=== PATIENT | female | born 1960 | race Caucasian/White ===

== ENCOUNTER → 2021-12-03 07:43 | Outpatient (CLI) | payer OTHER, SELFPAY ==
--- NOTE | ~2021-12-03 | MR_ITS ---
EXAMINATION: MR shoulder RT wo con DATE: 12/03/2021 08:38 INDICATION: Right shoulder pain TECHNIQUE: Magnetic resonance imaging (MRI) of the right shoulder was performed without intravenous c ontrast. Sequences included axial PD-weighted FS FSE, coronal oblique PD-weighted FS FSE, coronal obl ique T2-weighted FS FSE, sagittal PD-weighted FS FSE, and sagittal T1-weighted SE. COMPARISON: None. FINDINGS: Coracoacromial arch: The acromion undersurface is curved in morphology (type II). The coracoacromial ligament is normal. D istal right clavicle resection. Rotator cuff: Multiple foci of susceptibility artifact along the distal supraspinatus and infraspinatus tendons and suture anchor tracks along the greater tuberosity consistent with prior rotator cuff repair. Moderat e supraspinatus and mild infraspinatus tendinopathy. Mild attenuation of a minimal amount of the conj oined portion of the supraspinatus and infraspinatus tendons which measures approximately 3 mm AP. Th is consistent with a small partial thickness articular sided tear of the posterior supraspinatus tend on. The tear margin is retracted approximately 2.5 cm to the level of the apex of the humeral head al daniel the thickened rotator cable. It is unclear whether this represents residual tear post repair with recurrent tear. The teres minor tendon is normal. Mild subscapularis tendinopathy without discrete t ear. Minimal subscapularis tendinopathy without discrete tear. Minimal fatty atrophy of the supraspin atus and infraspinatus tendons. Biceps tendon, glenoid labrum and glenohumeral cartilage: Long head of the biceps tendon is normal. Tear at the 12:00-10:30 position of the posterior superior glenoid labrum. Small marginal osteophytes replacing portions of the inferior and anteroinferior labr um. Mild partial-thickness cartilage loss with smooth chondral surface at the inferomedial aspect of the humeral head and cephalad aspect of the glenoid. Fluid: Physiologic amount of fluid in the glenohumeral joint and biceps tendon sheath. No loose osteochondr al bodies. Small amount of fluid in the subacromial/subdeltoid bursa consistent with mild bursitis. Bones: Normal bone marrow signal with no fracture or pathologic marrow replacing process. IMPRESSION: 1. Moderate supraspinatus and infraspinatus tendinopathy with change of prior rotator cuff repair. Ve ry small mild residual versus recurrent articular sided tear involving the supraspinatus component of the conjoined portion of the tendon. 2. Mild right glenohumeral osteoarthritis with tear of the superior to posterior superior glenoid lab rum. 3. Mild subacromial/subdeltoid bursitis. 4. Distal right clavicle resection. Reviewed, dictated and finalized at location B. IMPRESSION: 1. Moderate supraspinatus and infraspinatus tendinopathy with change of prior r otator cuff repair. Very small mild residual versus recurrent articular sided t ear involving the supraspinatus component of the conjoined portion of the tendo n. 2. Mild right glenohumeral osteoarthritis with tear of the superior to posterio r superior glenoid labrum. 3. Mild subacromial/subdeltoid bursitis. 4. Distal right clavicle resection.
--- NOTE | ~2021-12-03 | MR_ITS ---
EXAMINATION: MR cervical spine wo con DATE: 12/03/2021 08:47 INDICATION: Right-sided neck pain. TECHNIQUE: Magnetic resonance imaging (MRI) of the cervical spine was performed without intravenous c ontrast. Sequences included sagittal T2-weighted FSE, sagittal T2-weighted FS FSE, sagittal T1-weight ed FSE, axial MERGE, and axial T2-weighted FSE. COMPARISON: None FINDINGS: There is dextroscoliosis of thoracic spine. Vertebral body heights are normal. There is mil dly decreased disc height at C3-C4 and moderately decreased disc height from C4-C5 through C7-T1 with endplate remodeling. The spinal cord signal intensity is normal. The following disc levels are speci fically discussed: C2-C3: The disc does not extend beyond the endplate margin. There is no uncovertebral joint osteoarth ritis. There is mild bilateral facet joint osteoarthritis. There is no neural foraminal stenosis. The re is no central canal stenosis. C3-C4: The disc is bulging. There is mild bilateral uncovertebral joint osteoarthritis. There is mode rate right and severe left facet joint osteoarthritis. There is mild bilateral neural foraminal steno sis. There is no central canal stenosis. C4-C5: The disc is bulging. There is severe bilateral uncovertebral joint osteoarthritis. There is se edith bilateral facet joint osteoarthritis. There is mild right and moderate left neural foraminal fidelia nosis. There is mild central canal stenosis. C5-C6: The disc is bulging. There is severe bilateral uncovertebral joint osteoarthritis. There is mi ld bilateral facet joint osteoarthritis. There is moderate bilateral neural foraminal stenosis. There is mild central canal stenosis. C6-C7: The disc is bulging. There is moderate right and severe left uncovertebral joint osteoarthriti s. There is mild right and moderate left facet joint osteoarthritis. There is mild bilateral neural f oraminal stenosis. There is mild central canal stenosis. C7-T1: The disc is bulging. There is mild right and severe left uncovertebral joint osteoarthritis. T here is severe bilateral facet joint osteoarthritis. There is mild bilateral neural foraminal stenosi s. There is mild central canal stenosis. IMPRESSION: 1. Moderate cervical spondylosis. Reviewed, dictated and finalized at location A.
== END ==
PROVIDERS: PCP Internal Medicine; Visit Provider Orthopaedic Surgery
DX: M19.011 Primary osteoarthritis, right shoulder (principal); M75.51 Bursitis of right shoulder; M47.892 Other spondylosis, cervical region
CPT/HCPCS: 72141; 73221

== ENCOUNTER 2022-02-05 14:33 | Outpatient (CLI) | payer OTHER, SELFPAY ==
--- NOTE | 2022-02-05 | ECG_ITS ---
Measurements Intervals [place] Rate: 72 P: 47 [place]: 172 QRS: -39 QRSD: 101 T: -6 QT: 390 QTc: 428 Interpretive Statements SINUS RHYTHM LEFT AXIS DEVIATION VOLTAGE CRITERIA FOR LVH BORDERLINE ECG NO PREVIOUS ECG AVAILABLE FOR COMPARISON Electronically Signed On 02-05-2022 15:32:59 CDT by Jerod Larsen M.D.
--- NOTE | ~2022-02-05 | XR_ITS ---
EXAMINATION: XR chest 2V 02/05/2022 15:25 INDICATION: Preoperative cervical spine surgery PROCEDURE: 2 view chest COMPARISON: No prior studies for comparison. FINDINGS: The lungs are clear. The cardiomediastinal silhouette is within normal limits. There are no pleural effusions. There is no pneumothorax suspected. There is dextroscoliosis of the thoracic spine. IMPRESSION: 1: NO ACUTE CARDIOPULMONARY DISEASE. Reviewed, dictated and finalized at location A.
[2022-02-05 15:21] LABS: Basophils Percent Auto 0.6 % (0.2-1.2); Eosinophils Absolute Auto 0.1 K/mm3 (0-0.3); Hematocrit 41.4 % (37.0-47.0); Hemoglobin 13.1 g/dL (12.0-15.0); Immature Granulocyte Absolute 0.02 K/mm3 (0.00-0.031); Immature Granulocyte Percent A 0.3 % (0-0.5); Lymphocytes Absolute Auto 2.08 K/mm3 (0.9-3.2); Lymphocytes Percent Auto 28.7 % (18.3-44.2); Mean Corpuscular HGB Conc 31.6 g/dl (32-36); Mean Corpuscular Hemoglobin 29.6 pg (26-34); Mean Corpuscular Volume 93.5 fl (80-100); Mean Platelet Volume 9.8 fl (7.4-10.4); Monocytes Absolute Auto 0.5 K/mm3 (0.1-0.6); Monocytes Percent Auto 7.2 % (2.6-8.5); Neutrophils Absolute Auto 4.5 K/mm3 (1.3-6.7); Neutrophils Percent Auto 62.2 % (45.5-73.1); Platelet Count Result 333 k/mm3 (150-375); Red Blood Count 4.43 M/mm3 (4.2-5.4); Red Cell Distribution Width 12.9 % (11.5-14.5); White Blood Count 7.2 K/mm3 (4.5-10.0)
[2022-02-05 15:32] LABS: Partial Thromboplastin Time 26.1 SECONDS (22.3-36.8); Prothrombin Time 12.6 Seconds (11.1-14.7)
[2022-02-05 15:33] LABS: Alanine Aminotransferase 26 U/L (6-35); Albumin Level 4.4 g/dL (3.5-5.1); Alkaline Phosphatase 72 U/L (38-126); Anion Gap 7 mmol/L (8-16); Aspartate Amino Transferase 25 U/L (14-36); Blood Urea Nitrogen 16 mg/dL (7-17); Calcium 9.8 mg/dL (8.4-10.2); Carbon Dioxide 28 mmol/L (22-30); Chloride 103 mmol/L (98-107); Estimated Glomerular Filt Rate > 60; Glucose 95 mg/dL (65-110); Potassium 3.7 mmol/L (3.4-5.0); Sodium 138 mmol/L (137-145)
== END 2022-02-05 14:34 | disposition home or self-care (01) ==
PROVIDERS: PCP Internal Medicine
DX: Z01.818 Encounter for other preprocedural examination (principal)
CPT/HCPCS: 36415; 71046; 80053; 85025; 85610; 85730; 93005

== ENCOUNTER → 2022-09-24 16:57 | Outpatient (CLI) | payer OTHER, SELFPAY ==
--- NOTE | ~2022-09-24 | MR_ITS ---
MRI of the right hip Clinical history: Pain Technique: Coronal T1-weighted, T2-weighted, and proton-density fat-sat images, and axial T1-weighted and proton-density fat-sat images were acquired through the pelvis. Coronal T2-weighted images and c oronal, axial, and sagittal proton-density fat-sat images were acquired through the right hip. Findings: There is no fracture, avascular necrosis, or transient osteoporosis of either hip. Bone mar row signals in the proximal femora and visualized pelvic bones are unremarkable. Bilateral hip and SI joints are preserved. No erosive change or joint effusion evident. Probable mild degenerative attenu ation of the right acetabular labrum without definite discrete labral tear. Visualized musculature about the pelvis and right hip is unremarkable. No muscle atrophy or edema see n. Visualized tendons are intact. No soft tissue mass or fluid collection. No evidence for bursitis. IMPRESSION: No significant abnormality seen. Reviewed, dictated and finalized at location .
== END ==
PROVIDERS: PCP Nurse Practitioner; Visit Provider Orthopaedic Surgery
DX: M25.551 Pain in right hip (principal)
CPT/HCPCS: 73721

== ENCOUNTER 2025-01-23 20:45 | Emergency (ER) | payer MEDICARE, SELFPAY ==
--- OUTSIDE RECORDS SUMMARY | 2025-01-23 20:47 | XMS_ITS | Continuity of Care Document ---
Author Organization [facility] Address [address] [place] [address] Phone Care Team Providers Care Set Up Inspector Name Role Phone Yariel Arana MD Unavailable Unavailable Procedures Procedure Date INJ SPINE CERV/THOR W/ IMAGING GUIDANCE SURGICAL TRAY LOW OSMOLAR CONTRAST (300 TO 399 MG IODI NE) Injection, Triamcinolone Acetonide, 10mg Advance Directives Directive Yes / No Effective Date File Name No Information Encounters Encounter Description Practice Location Reason(s) For Visit Diagnoses Date Provider Providers Copied on Encounter [facility], [address], [place], [place], [address], [place] tel:[phone] [facility] No Information Yasmeen Saldivar. [address] , [place], [place], [address], [place]. tel:[phone] Referring Provider: Iglesia Harrington DO, [address], [place], [address]. tel:[phone] Family History Family Member Type Diagnosis Age At Onset No Information Payers Payer name Insurance type Covered democrat ID Authoriza tilorena(s) GARIMA CI [id number] Social History Type Description Quantity Date Captured Comments Sex Female Smoking Status No Information Chief Complaint And Reason For Visit No Information Reason For Referral Reason For Referral No Information History Of Present Illness Encounter Date Complaint History Of Prese nt Illness No Information Functional Status Date Functional Assessmen t No Information Instructions Date Instruction Additional Infor mation No Information Assessments Type Assessment Date No Information Patient Care Teams Name Effective Dates (start - stop) Status Members No Information
--- OUTSIDE RECORDS SUMMARY | 2025-01-23 20:47 | XMS_ITS | Clinical Summary ---
Author Organization [facility] Address [address] [place] [address] Care Team Providers Care Core Stacker Name Role Phone Cristobal Cummings MD Primary Care Provider [phone] Source Comments [facility],non-owned Affiliates and Associated Physician Practices is amultiple site organization consisting of ambulatory clinics and hospital sitesin [place], [place], [place] and [place]. This disclosure is being madepursuant to the Care Everywhere program and may not contain all information available regarding this patient. Last updated 18.[facility] Immunizations Immunization Administration Dates Next Due FLU VACCINE QUAD IIV4 PF ID 03/15/2016 Social History Tobacco Use Types Packs/Day Years Used Date Smoking Tobacco: Never Assessed Comments Unknown Sex and Gender Information Value Date Recorded Sex Assigned at Not on file Legal Sex Female 4:15 PM CDT Gender Identity Not on file Sexual Orientation Not on file Plan of Treatment Health Maintenance Due Date Last Done Comments BONE DENSITY TESTING 1960 COLOGUARD (AGES 45-75) - COL ON CA SCREENING 1958 COLON MONITORING 1958 COLONOSCOPY - COLON CA SCREENING 1958 CT COLONOGRAPHY - COLON CA SCREENING 1958 Colorectal Cancer Screening 1958 FIT - COLON CA SCREENING 1958 FLEX SIG - COLON CA SCREENING 1958 LIPID TESTING 1958 MAMMOGRAM 1958 HEPATITIS C SCREENING 07/11/1976 DTAP/TDAP/TD VACCINES (1 - Tdap) 1977 PNEUMOCOCCAL VACCINE 50+ (1 of 1 - PCV) 2008 ZOSTER VACCINE (1 of 2) 2008 COVID-19 VACCINE (2023-2 5 season) 2024 DEPRESSION SCREENING 06/14/2024 INFLUENZA VACCINE (#1) 2025 03/15/2016 Respiratory Syncytial Virus (RSV) Vaccine Pt: or over 60 yrs (1 - 1-dose 75+ series) 2033 HEPATITIS B VACCINE Aged Out No longe r eligible based on patient's age to complete this topic HIB VACCINE Aged Out No longer eligi ble based on patient's age to complete this topic HPV VACCINE Aged Out No longer eligi ble based on patient's age to complete this topic MENINGOCOCCAL (Group B) VACC INE SHARED DECISION-MAKING Aged Out No longer eligibl e based on patient's age to complete this topic MENINGOCOCCAL GROUPS A/C/Y/W VACCINE Aged Out No longer eligible b ased on patient's age to complete this topic [facility] [place] [id number] [employer] [facility] [place] [id number] [employer] Care Teams Core Stacker Relationship Specialty Start Date End Date Cristobal Cummings MD [address] [place] [id number] PCP - General 09/21/17
--- OUTSIDE RECORDS SUMMARY | 2025-01-23 20:47 | XMS_ITS | Continuity of Care Document ---
Author Organization [facility] Address [address] [place] [address] [address] [place] [address] Phone Care Team Providers Care Crop Grain Or Livestock Farmer Name Role Phone Cesar Funes PT Unavailable Unavailable Procedures Procedure Date Therapeutic Activities Manual Therapy Hot or Cold Pack Therapeutic Activities Neuromuscular Re-Ed Therapeutic Exercise Manual Therapy Hot or Cold Pack Therapeutic Activities Neuromuscular Re-Ed Therapeutic Exercise Manual Therapy Therapeutic Activities Neuromuscular Re-Ed Therapeutic Exercise Hot or Cold Pack Therapeutic Activities Therapeutic Exercise Neuromuscular Re-Ed Hot or Cold Pack Therapeutic Activities Neuromuscular Re-Ed Manual Therapy Hot or Cold Pack Therapeutic Activities Neuromuscular Re-Ed Therapeutic Exercise Manual Therapy Hot or Cold Pack Therapeutic Activities Neuromuscular Re-Ed Manual Therapy Therapeutic Exercise Hot or Cold Pack PT Evaluation Low Complexity Therapeutic Activities Neuromuscular Re-Ed Therapeutic Exercise Manual Therapy Therapeutic Activities Progress Note Hot or Cold Pack Manual Therapy Neuromuscular Re-Ed Therapeutic Activities Manual Therapy Neuromuscular Re-Ed Therapeutic Activities Manual Therapy Neuromuscular Re-Ed Neuromuscular Re-Ed Therapeutic Activities Manual Therapy Neuromuscular Re-Ed Therapeutic Activities Manual Therapy Manual Therapy Neuromuscular Re-Ed Therapeutic Activities PT Evaluation Low Complexity Advance Directives Directive Yes / No Effective Date File Name No Information Encounters Encounter Description Practice Location Reason(s) For Visit Diagnoses Date Provider Providers Copied on Encounter [facility] [address], [place], [place], [id number], tel:[phone] [place] No Information 2 Marin Cesar. . Referring Provider: Mitali Aguilar [address] [address], [place], [address]. tel:[phone] [facility] [address] [facility] [address], [place], [place], [address], tel:[phone] [place] No Information Apr- 2 Marin Cesar. . Referring Provider: Mitali Aguilar [facility] [address], [place], [address]. tel:[phone] [facility] [facility] [address], [place], [place], [address], tel:[phone] [place] No Information Apr- 2 Marin Cesar. . Referring Provider: Mitali Aguilar [facility] [address], [place], [address]. tel:[phone] [facility], [facility] [address], [place], [place], [address], [place] tel:[phone] [place] No Information 2 Marin Cesar. . Referring Provider: Mitali Aguilar [address], [place], [address]. tel:[phone] [facility] [address], [place], [place], [address], [place] tel:[phone] [place] No Information 0-202 2 Marin Cesar. . Referring Provider: Mitali Aguilar [address], [place], [address]. tel:[phone] [facility] [address], [place], [place], [address], [place] tel:[phone] [place] No Information 0 8 2 Marin Cesar. . Referring Provider: Mitali Aguilar [address], [place], [address]. tel:[phone] [facility] [address], [place], [place], [address], [place] tel:[phone] [place] No Information 2 Marin Cesar. . Referring Provider: Mitali Aguilar [address], [place], [address]. tel:[phone] [facility] [address], [place], [place], [address], [place] tel:[phone] [place] No Information 2 Marin Cesar. . Referring Provider: Mitali Aguilar [address], [place], [address]. tel:[phone] [facility] [address], [place], [place], [address], [place] tel:[phone] [place] No Information 0 2 Marin Cesar. . Referring Provider: M[address]i [address], [place], [address]. tel:[phone] [facility] [address] [facility] [address], [place], [place], [address], tel:[phone] [place] No Information 2 Marin Cesar. . Referring Provider: Mitali [address], [place], [address]. tel:[phone] [address], [place], [place], [address], tel:[phone] [place] No Information 2 Marin Cesar. . Referring Provider: Mitali Agu[address] [address], [place], [address]. tel:[phone] [facility] [address] [facility] [address] [facility] [address], [place], [place], [address], [place] tel:[phone] [place] No Information 2 Marin Cesar. . Referring Provider: Mitali Aguilar [facility] [address], [place], [address]. tel:[phone] [facility] [address] [place], [place] [address], [place], [place], [address], [place] tel:[phone] [place] No Information 0 2 Marin Cesar. . Referring Provider: Mitali [address], [place], [address]. tel:[phone] [facility] [address] [facility] [address], [place], [place], [address], tel:[phone] [place] No Information 0 2 Marin Cesar. . Referring Provider: Mitali Aguilar [facility] [address], [place], [address]. tel:[phone] [facility], [address] [facility] [address] [facility] [address], [place], [place], [address], [place] tel:[phone] [facility] No Information 2 Marin Guerrero. . Referring Provider: Iglesia Harrington, [address], [place], [address]. tel:[phone] Family History Family Member Type Diagnosis Age At Onset No Information Payers Payer name Insurance type Covered republican ID Authordarrell sweeney(s) [employer] [id number] Social History Type Description Quantity Date Captured Comments Sex Female Smoking Status No Information Chief Complaint And Reason For Visit No Information Reason For Referral Reason For Referral No Information History Of Present Illness Encounter Date Complaint History Of Prese nt Illness No Information Functional Status Date Functional Assessmen t No Information Instructions Date Instruction Additional Infor mation Giving encouragement to exercise Related to Overweight Giving encouragement to exercise Related to Overweight Giving encouragement to exercise Related to Overweight Giving encouragement to exercise Related to Overweight Giving encouragement to exercise Related to Overweight Giving encouragement to exercise Related to Overweight Assessments Type Assessment Date No Information Patient Care Teams Name Effective Dates (start - stop) Status Members No Information
--- NOTE | 2025-01-23 20:51 | ECG_ITS ---
Test Date: 2025-01-23 20:58:36 Measurements Intervals [place] Rate: 92 P: 30 [place]: 138 QRS: -52 QRSD: 101 T: 11 QT: 346 QTc: 429 Interpretive Statements SINUS RHYTHM POSSIBLE LEFT ATRIAL ENLARGEMENT LEFT ANTERIOR FASCICULAR BLOCK LEFT VENTRICULAR HYPERTROPHY AND ST-T CHANGE CONSIDER HIGH LATERAL INFARCT, AGE INDETERMINATE BASELINE ARTIFACT- I, II, III, AVR, AVL, AVF, V1-V6 ABNORMAL ECG No previous ECG available for comparison Electronically Signed On 01-24-2025 06:14:09 CDT by Mihir Lopes D.O.
[2025-01-23 20:52] VITALS: BP 181/101; PULSE 86; RESP 18; TEMP 36.8; O2SAT 99
[2025-01-23] MEDS: ASPIRIN 81 MG CHEWABLE TABLET 324 MG PO (21:13)
[2025-01-23 21:14] LABS: Hematocrit 40.3 % (37.0-47.0); Hemoglobin 12.9 g/dL (12.0-15.0); Immature Granulocyte Percent A 0.4 % (0-0.5); Lymphocytes Absolute Auto 3.18 K/mm3 (0.9-3.2); Mean Corpuscular HGB Conc 32.0 g/dl (32-36); Mean Corpuscular Hemoglobin 29.3 pg (26-34); Mean Corpuscular Volume 91.6 fl (80-100); Nucleated Red Blood Cells Absolute Auto 0.000 K/mm3 (0.0-0.012); Nucleated Red Blood Cells Perc 0.0 % (0.0-0.2); Platelet Count Result 306 k/mm3 (150-375); Red Blood Count 4.40 M/mm3 (4.2-5.4); White Blood Count 7.5 K/mm3 (4.5-10.0)
[2025-01-23 21:24] LABS: Alanine Aminotransferase 45 U/L (6-35); Albumin Level 4.7 g/dL (3.5-5.1); Alkaline Phosphatase 95 U/L (38-126); Anion Gap 7 mmol/L (4-12); Aspartate Amino Transferase 39 U/L (14-36); Bilirubin,Total 1.1 mg/dL (0.2-1.3); Blood Urea Nitrogen 14 mg/dL (7-17); Calcium 10.5 mg/dL (8.4-10.2); Carbon Dioxide 29 mmol/L (22-30); Chloride 103 mmol/L (98-107); Estimated CRCL calculation 52 ml/min; Estimated Glomerular Filt Rate 52; Glucose 115 mg/dL (65-110); Lipase 83 U/L (23-300); Potassium 4.3 mmol/L (3.4-5.0); Sodium 139 mmol/L (137-145); Total Protein 8.0 g/dL (6.3-8.2)
[2025-01-23 21:26] LABS: INR 0.9; Prothrombin Time 12.7 Seconds (11.1-14.7)
[2025-01-23 21:27] LABS: Partial Thromboplastin Time 27.2 Seconds (22.3-36.8)
[2025-01-23 21:35] LABS: Troponin I < 0.012 ng/mL (0.000-0.034)
[2025-01-23 23:10] VITALS: BP 155/94; PULSE 67; TEMP 36.5; O2SAT 98
--- NOTE | 2025-01-23 23:22 | PC.NURSE ---
Pt ambulatory to intake desk and states she is wanting to leave and is asking for advice whether or not to stay. custom bookbinder states we always recommend pt stay to be seen but we cannot force you to stay. Pt states she wants to leave but wants to know the results of her blood work. RN states we cannot give results out in triage but if anything was ciritical they would have been brought back sooner. Pt states she is wanting to leave. RN gave pt a portal pamphlet and states to come back in if anything worsens. Pt left without being seen at 2312. Pt exite with steady gait.
--- OUTSIDE RECORDS SUMMARY | 2025-01-23 23:47 | XMS_ITS | Continuity of Care Document ---
Author Organization [facility] Address [address] [place] [address] Phone Care Team Providers Care Drivematic Machine Operator Name Role Phone Yariel Arana MD Unavailable Unavailable Procedures Procedure Date INJ SPINE CERV/THOR W/ IMAGING GUIDANCE SURGICAL TRAY LOW OSMOLAR CONTRAST (300 TO 399 MG IODI NE) Injection, Triamcinolone Acetonide, 10mg Advance Directives Directive Yes / No Effective Date File Name No Information Encounters Encounter Description Practice Location Reason(s) For Visit Diagnoses Date Provider Providers Copied on Encounter [facility], [address], [place], [place], [address], [place] tel:[phone] [facility] No Information Yasmeen Saldivar. [address] , [place], [place], [address], [place]. tel:[phone] Referring Provider: Iglesia Harrington DO, [address], [place], [address]. tel:[phone] Family History Family Member Type Diagnosis Age At Onset No Information Payers Payer name Insurance type Covered constitution party ID Authoriza tilorena(s) GARIMA CI [id number] Social History Type Description Quantity Date Captured [...]
--- OUTSIDE RECORDS SUMMARY | 2025-01-23 23:47 | XMS_ITS | Continuity of Care Document ---
Author Organization [facility] Address [address] [place] [address] [address] [place] [address] Phone Care Team Providers Care Csr Technician Name Role Phone Cesar Funes PT Unavailable Unavailable Procedures Procedure Date Therapeutic Activities Manual Therapy Hot or Cold Pack Therapeutic Activities Neuromuscular Re-Ed Therapeutic Exercise Manual Therapy Hot or Cold Pack Therapeutic Activities Neuromuscular Re-Ed Therapeutic Exercise Manual Therapy Therapeutic Activities Neuromuscular Re-Ed Therapeutic Exercise Hot or Cold Pack Therapeutic Activities Neuromuscular Re-Ed Therapeutic Exercise Hot or Cold Pack Therapeutic Activities Neuromuscular Re-Ed Manual Therapy Hot or Cold Pack Therapeutic Activities Neuromuscular Re-Ed Therapeutic Exercise Manual Therapy Hot or Cold Pack Therapeutic Activities Neuromuscular Re-Ed Therapeutic Exercise Manual Therapy Hot or Cold Pack PT Evaluation Low Complexity Therapeutic Activities Neuromuscular Re-Ed Therapeutic Exercise Manual Therapy Progress Note Therapeutic Activities Neuromuscular Re-Ed Manual Therapy Hot or Cold Pack Therapeutic Activities Neuromuscular Re-Ed Manual Therapy Therapeutic Activities Neuromuscular Re-Ed Manual Therapy Therapeutic Activities Neuromuscular Re-Ed Manual Therapy Therapeutic Activities Neuromuscular Re-Ed Manual Therapy PT Evaluation Low Complexity Therapeutic Activities Neuromuscular Re-Ed Manual Therapy Advance Directives Directive Yes / No Effective Date File Name No Information Encounters Encounter Description Practice Location Reason(s) For Visit Diagnoses Date Provider Providers Copied on Encounter [facility] [address], [place], [place], [id number], tel:[phone] Dawson No Information 2 Marin Cesar. . Referring Provider: Mitali Aguilar [address] [address], [place], [address]. tel:[phone] [facility] [address] [facility] [address], [place], [place], [id number], tel:[phone] [place] No Information Apr- 2 Marin Cesar. . Referring Provider: Mitali Aguilar [facility] [address], [place], [address]. tel:[phone] [facility] [facility] [address], [place], [place], [id number], tel:[phone] Dawson No Information Apr- 2 Marin Cesar. . Referring Provider: Mitali Aguilar [facility] [address], [place], [address]. tel:[phone] [facility], [facility] [address], [place], [place], [id number], [place] tel:[phone] [place] No Information 2 Marin Cesar. . Referring Provider: Mitali Aguilar [address], [place], [address]. tel:[phone] [facility] [address], [place], [place], [id number], [place] tel:[phone] [place] No Information 0-202 2 Marin Cesar. . Referring Provider: Mitali Aguilar [address], [place], [address]. tel:[phone] [facility] [address], [place], [place], [id number], [place] tel:[phone] Dawson No Information 0 8 2 Marin Cesar. . Referring Provider: Mitali Aguilar [address], [place], [address]. tel:[phone] [facility] [address], [place], [place], [id number], [place] tel:[phone] [place] No Information 2 Marin Cesar. . Referring Provider: Mitali Aguilar [address], [place], [address]. tel:[phone] [facility] [address], [place], [place], [id number], [place] tel:[phone] [place] No Information 2 Marin Cesar. . Referring Provider: Mitali Aguilar [address], [place], [address]. tel:[phone] [facility] [address], [place], [place], [address], [place] tel:[phone] [place] No Information 0 2 Marin Cesar. . Referring Provider: Mitali Agu[address], [place], [address]. tel:[phone] [facility] [address] [facility] [address], [place], [place], [id number], tel:[phone] [place] No Information 2 Marin Cesar. . Referring Provider: Mitali Agu[address], [place], [address]. tel:[phone] [address], [place], [place], [id number], tel:[phone] [place] No Information 2 Marin Cesar. . Referring Provider: Mitali Aguilar [address] [address], [place], [address]. tel:[phone] [facility] [address] [address], [place], [place], [id number], [place] tel:[phone] [place] No Information 2 Marin Cesar. . Referring Provider: Mitali Aguilar [facility] [address], [place], [address]. tel:[phone] [facility] [address] [place], [place] [address], [place], [place], [id number], [place] tel:[phone] Dawson No Information 0 2 Marin Cesar. . Referring Provider: Mitali Agu[address], [place], [address]. tel:[phone] [facility] [address] [facility] [address], [place], [place], [id number], tel:[phone] Dawson No Information 0 2 Marin Cesar. . Referring Provider: Mitali Aguilar [facility] [address], [place], [address]. tel:[phone] [facility], [address] [facility] [address], [place], [place], [id number], [place] tel:[phone] Amandeep No Information 2 Marin Guerrero. . Referring Provider: Iglesia Harrington, [address], [place], [address]. tel:[phone] Family History Family Member Type Diagnosis Age At Onset No Information Payers Payer name Insurance type Covered republican ID Authordarrell sweeney(s) [employer] [id number] Social History Type Description Quantity Date Captured [...]
--- OUTSIDE RECORDS SUMMARY | 2025-01-23 23:47 | XMS_ITS | Clinical Summary ---
Author Organization [facility] Address [address] [place] [address] Care Team Providers Care Booth Cleaner Name Role Phone Cristobal Cummings MD Primary Care Provider [phone] Source Comments [facility],non-owned Affiliates and Associated Physician Practices is amultiple site organization consisting of ambulatory clinics and hospital sitesin [place], [place], [place] and [place]. This disclosure is being madepursuant to the Care Everywhere program and may not contain all information available regarding this patient. Last updated 18.[facility] Immunizations Immunization Administration Dates Next Due FLU [...] patient's age to complete this topic [facility] [address] [id number] [facility] [place] [address] [facility] [place] [id number] [facility] Care Teams Booth Cleaner Relationship Specialty Start Date End Date Cristobal Cummings MD [address] [place] [address] PCP - General 09/21/17
== END 2025-01-23 23:12 | disposition left against medical advice (07) ==
LOC: ANHED 23:45
PROVIDERS: Emergency Provider Student in an Organized Health Care Education/Training Program; PCP Nurse Practitioner
DX: R07.9 Chest pain, unspecified (principal)
CPT/HCPCS: 36415; 80053; 83690; 84484; 85025; 85610; 85730; 93005; 99199; A9270

== ENCOUNTER 2025-02-09 11:03 | Outpatient (CLI) | payer MEDICARE, SELFPAY ==
--- NOTE | ~2025-02-09 | MR_ITS ---
EXAMINATION: MR knee RT wo con DATE: 02/09/2025 11:51 INDICATION: Right knee pain TECHNIQUE: Magnetic resonance imaging (MRI) of the right knee was performed without intravenous contrast. Sequences included coronal PD-weighted FSE, coronal PD-weighted FS FSE, sagittal T2-weighted FSE, sagittal PD-weighted FS FSE and axial PD weighted fat saturated FSE. COMPARISON: None. FINDINGS: Medial compartment: Complex tear of the body and posterior horn of the medial meniscus. Partial- thickness chondral ulceration along the weightbearing medial femoral condyle relative sparing the posterior most portion of the articular cartilage. This involves greater than 50% the cartilage thickness but without degenerative subchondral changes at the central weightbearing portion of the medial femoral condyle. Less severe cartilage loss but with chondral surface irregularity at the anterior weightbearing medial femoral condyle. There is additional partial thickness cartilage loss involving greater than 50% the thickness but with smooth surface and without degenerative subchondral changes along the anterior third of the medial tibial plateau. Lateral compartment: Lateral meniscus is normal. Shallow chondral ulceration at the central aspect of the lateral tibial plateau. Additional mild partial-thickness cartilage loss with smooth chondral surface along the medial aspect of the posterior weightbearing lateral femoral condyle. Patellofemoral compartment: Extensive deep chondral ulceration in place appearing full/near full-thickness along the lateral patellar facet. Partial-thickness chondral ulceration at the patellar apical ridge and small portion of the inferior aspect of the medial patellar facet. Additional deep chondral ulceration throughout the trochlea with scattered regions of cortical irregularity and subarticular edema-like and cystlike changes at the lateral trochlea, trochlear groove and lateral aspect of the medial trochlea. Ligaments and tendons: Anterior and posterior cruciate ligaments are normal. The medial collateral ligament and fibular collateral ligament complex are normal. Patellar tendon is normal. Mild distal quadriceps tendinopathy with small enthesophyte at its patellar insertion The visualized medial and lateral hamstring tendons as well as the iliotibial band are normal. Fluid: Small amount of fluid at the suprapatellar pouch which remains within normal limits. No loose osteochondral bodies identified. Osseous/other: Bone alignment is normal. No fracture or pathologic marrow replacing process. IMPRESSION: 1. Complex tear of the body and posterior horn of the medial meniscus. 2. 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 3. Mild distal quadriceps tendinopathy/enthesopathy. Reviewed, dictated and finalized at location A. IMPRESSION: 1. Complex tear of the body and posterior horn of the medial meniscus. 2. 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 3. Mild distal quadriceps tendinopathy/enthesopathy.
== END 2025-02-09 11:04 | disposition home or self-care (01) ==
LOC: GOSHIMG 11:05
PROVIDERS: PCP Nurse Practitioner; Visit Provider Physician Assistant Surgical
DX: M25.561 Pain in right knee (principal); S83.231A Complex tear of medial meniscus, current injury, right knee, initial encounter; M17.11 Unilateral primary osteoarthritis, right knee; M94.261 Chondromalacia, right knee; M76.891 Other specified enthesopathies of right lower limb, excluding foot
CPT/HCPCS: 73721